=== PATIENT | male | born 2005 | race Caucasian/White ===

== ENCOUNTER 2024-06-21 18:26 | Emergency (ER) | payer BC, SELFPAY ==
[2024-06-21 18:28] VITALS: BP 151/79
[2024-06-21 18:58] LABS: % Basophils 0.7 % (0-2); % Eosinophils 2.8 % (0-6); % Immature Granulocytes 0.1 % (0-0.5); % Lymphocytes 28.4 % (20.5-51.1); % Monocytes 6.4 % (1.7-9.3); % Neutrophils 61.6 % (42.2-75.2); Absolute Basophils 0.1 10^3/uL (0-0.2); Absolute Eosinophils 0.2 10^3/uL (0-0.7); Absolute Monocytes 0.5 10^3/uL (0.1-0.6); Absolute Neutrophils 4.4 10^3/uL (1.4-6.5); Hematocrit 45.5 % (39.0-52.0); Hemoglobin 15.8 g/dL (13.0-18.0); Mean Corp Hgb Conc. 34.7 g/dL (33.0-37.0); Mean Corpuscular Hgb 28.6 pg (27.0-31.0); Mean Corpuscular Volume 82.4 fL (80.0-94.0); Mean Platelet Volume 9.7 fL (7.4-10.4); Nucleated Red Blood Cells % 0 % (-); Platelet Count 283 10^3/uL (130-400); Red Blood Cell Count 5.52 10^6/uL (4.70-6.10); Red Cell Dist. Width 11.9 % (11.5-14.5); White Blood Cell Count 7.2 10^3/uL (4.8-10.8)
[2024-06-21 19:11] LABS: ALT (SGPT) 20 U/L (0-50); AST (SGOT) 24 U/L (17-59); Albumin 5.1 g/dl (3.5-5.0); Alkaline Phosphatase 62 U/L (38-126); Blood Urea Nitrogen 12 mg/dl (9-20); Calcium 9.8 mg/dl (8.4-10.2); Carbon Dioxide 22 mmol/L (22-30); Chloride 104 mmol/L (98-107); Glucose 131 mg/dl (70-99); Potassium 3.5 mmol/L (3.5-5.1); Sodium 141 mmol/L (135-145); Total Bilirubin 0.6 mg/dl (0.2-1.3); Total Protein 7.9 g/dl (6.3-8.2); eGFR > 60.00
[2024-06-21 19:22] LABS: Troponin I < 0.012 ng/ml
[2024-06-21 21:10] VITALS: BP 134/82
[2024-06-21 21:19] VITALS: BMI 21.1
--- NOTE | 2024-06-21 21:36 | ED.GENMED ---
History of Present Illness
General
Chief Complaint: Chest Pain
Source: patient
Time Seen by Provider: 06/21/24 21:15
History of Present Illness
History of Present Illness:
18-year-old male presents to the emergency room for evaluation of chest discomfort. Patient states that the discomfort began about 1130 last night. He no longer has chest discomfort so much but just feels tired and somewhat short of breath. No
fever, chills, cough, nausea, vomiting or diarrhea. No recent travel or periods of immobilization. He does not have any lower extremity pain.
Phy Exam
Physical Exam
Physical Exam:
General: Awake, Alert, Oriented X3. No acute distress.
Vitals: unremarkable
Head: Atraumatic
Eyes: Pupils equal, EOMI
Throat: Airway intact, no exudates
Neck: Trachea midline
Lungs: Clear and equal b/l
Heart: Regular rate, no murmurs
Abd: Soft, Nontender, No pulsatile mass
Neuro: Nonfocal
Skin: Warm, dry, no rash
Extremities: pulses equal b/l, no edema
Scores
Heart Score for Chest Pain Patients
STEMI patient?: No
History: Slightly or Non-Suspicious
ECG: Normal
Age: </= 45 years
Risk Factors: No Risk Factors
Troponin: </= Normal Limit
Heart Score for Chest Pain Patients: 0
Heart Score Risk: 2.5% MACE over next 6 weeks
PE Wells Score
Symptoms of DVT: No
No alternative diagnosis better explains the illness: Yes
Tachycardia with pulse > 100: Yes
Immobilization (>=3 days) or surgery within previous 4 weeks: No
Prior history of DVT or pulmonary embolism: No
Presence of hemoptysis: No
Presence of malignancy: No
Pulmonary Embolism Risk Score: 7.5
Probability of PE: Pt is high risk
Course
Orders/Labs/Results
Orders:
Orders
06/21/24 18:31
Electrocardiogram (*1) Urgent
Reason for Study: Chest Pain
EKG- Treatment ONCE
06/21/24 18:40
Complete Blood Count/With Diff Urgent
Comprehensive Metabolic Panel Urgent
Troponin I Urgent
06/21/24 21:36
CR Chest - 2 Views Urgent
Comment:
Reason For Exam: chest pain
06/21/24 22:00
D-Dimer Urgent
Abnormal Lab Results
06/21/24
18:40
Glucose 131 H mg/dl
(70-99)
Albumin 5.1 H g/dl
(3.5-5.0)
06/21/24 18:40
06/21/24 18:40
Vital Signs
Initial and Last Documented VS:
Initial Vital Signs
Temp Pulse Resp BP Pulse Ox
98.2 F 127 18 151/79 98
06/21/24 18:28 06/21/24 18:28 06/21/24 18:28 06/21/24 18:28 06/21/24 18:28
Last Documented Vital Signs
Temp Pulse Resp BP Pulse Ox
98.2 F 101 16 113/69 98
06/21/24 18:28 06/21/24 23:45 06/21/24 23:45 06/21/24 23:00 06/21/24 23:45
MDM/Problems Addressed
Differential Diagnosis Includes:
Chest wall pain, costochondritis, pneumothorax, pericarditis
MDM/Problems Addressed:
Chest x-ray here is unremarkable. Labs are unremarkable. EKG shows no ischemic changes. Patient stable for discharge home and outpatient follow-up with his primary care provider
*Radiology
Radiology exam reviewed: preliminary read by ED provider (No acute abnormality to my review of the patient's chest x-ray)
*Pulse Oximetry
Patient hypoxic: no
*EKG
Interpretation: abnormal
Heart Rate: 106
Rate: tachycardiac
Rhythm: sinus tachycardia
[place]: normal axis
Interval: normal interval
QRS Pattern: normal QRS
Ischemia: no ischemia
*Counter Person Interpretation
Rate: tachycardiac
Interpretation: abnormal
Rhythm: sinus tachycardia
*Critical Care Note
Total Time (30-74mins, 75-104mins- exclusive of procedures): Not Applicable
ED Attending Note
-
Portions of this chart may have been created with voice recognition software.� Occasional wrong word or��sound alike� substitutions may have occurred due to the inherent limitations of voice recognition software.
Discharge Plan
Departure
Patient Disposition: Home (Routine Discharge)
Date of Disposition: 06/21/24
Time of Disposition: 23:26
Patient with high blood pressure during this ER visit?: No
Condition: Good
Discharge Problem:
Chest pain
Instructions: Chest Pain PCP Follow Up
Referrals:
UNKNOWN - PT DOES,NOT KNOW [Family Provider] -
Interventions
Interventions:
*Risk Screen - Suicide Last Done: 06/21/24 18:28
*General Assessment Last Done: 06/21/24 18:28
*Neglect/Abuse Screening Last Done: 06/21/24 18:28
ED- Fall Risk Assessment Last Done: 06/21/24 21:14
*ED COVID-19 Vaccine History Last Done: 06/21/24 18:28
*Nursing Disposition Last Done: 06/21/24 23:56
ED- Cardiac Assessment Last Done: 06/21/24 21:19
Discharge Date and Time
Discharge Date/Time: 06/21/24 23:57
Print Language: ALBANIAN
[2024-06-21 22:00] VITALS: BP 123/80
[2024-06-21 22:28] LABS: D-Dimer < 0.27 ug/mlFEU (0.00-0.50)
[2024-06-21 23:00] VITALS: BP 113/69
== END 2024-06-21 23:57 | disposition home or self-care (01) ==
LOC: EMR 18:26
PROVIDERS: Student in an Organized Health Care Education/Training Program; EMERGENCY PHYSICIAN Emergency Medicine
DX: R07.89 Other chest pain (principal); R06.02 Shortness of breath; R53.83 Other fatigue
CPT/HCPCS: 99284; 71046; 80053; 84484; 85025; 85379; 93005